=== PATIENT | male | born 1945 | race Caucasian/White ===

== ENCOUNTER 2016-04-29 19:50 | Emergency (ER) | payer BC, MEDICAID ==
[2016-04-29] MEDS ORDERED: IPRATROPIUM/ALBUTEROL (0.5MG/3MG) NEB INH ONE (19:58)
[2016-04-29] MEDS ORDERED: METHYLPREDNISOLONE PF 125MG/VIAL IVP ONE (20:00)
--- NOTE | 2016-04-29 20:06 | Emergency Department Record ---
History of Present Illness - General Chief Complaint: Shortness of breath Stated Complaint: BRITTANY Source: Patient - History of Present Illness Initial Comments: The patient states he has been sick since Monday with cough productive of thick yellow sputum, fevers, SOB. Yesterday, , he slept all day, and today he is more short of breath. He used his nebulizers twice today but has not had relief of his SOB. He has COPD and states that he gets pneumonia at least once a year. He denies AK, PE, DVT, CVA. He is being treated for htn. He recently moved to this area to live with family. He states he is depressed as he has lost his , two brothers, and a son in the past 1 and 1/2 years. MD Complaint: Shortness of breath - Related Data Home Medications Medication Instructions Recorded Confirmed Last Taken Budesonide/Formoterol Fumarate 1 puff PO BID 04/29/16 04/29/16 Unknown [Symbicort 160-4.5 Mcg Inhaler] Hydrochlorothiazide 12.5 mg PO DAILY 04/29/16 04/29/16 Unknown [Hydrochlorothiazide] Lisinopril [Zestril] 20 mg PO DAILY 04/29/16 04/29/16 Unknown Omeprazole [Prilosec] 20 mg PO DAILY 04/29/16 04/29/16 Unknown Simvastatin [Simvastatin] 20 mg PO DAILY 04/29/16 04/29/16 Unknown Tamsulosin HCl [Tamsulosin HCl] 0.4 mg PO DAILY 04/29/16 04/29/16 Unknown Tiotropium Agar [Spiriva] 1 puff INH DAILY 04/29/16 04/29/16 Unknown Allergies Allergy/AdvReac Type Severity Reaction Status Date / Time varenicline tartrate AdvReac disoriented Verified 04/29/16 19:58 [[facility] Review of Systems Reviewed: No additional complaints except as noted below Constitutional: Reports: As per HPI. Denies: Chills, Fever, Malaise, Night sweats, Weakness, Weight change Eyes: Reports: As per HPI. Denies: Eye discharge, Eye pain, Photophobia, Vision change ENT: Reports: As per HPI. Denies: Congestion, Dental pain, Ear pain, Epistaxis , Hearing loss, Throat pain Respiratory: Reports: As per HPI. Denies: Cough, Dyspnea, Hemoptysis, Stridor, Wheezes Cardiovascular: Reports: As per HPI. Denies: Arrhythmia, Chest pain, Dyspnea on exertion, Edema, Murmurs, Orthopnea, Palpitations, Paroxysmal nocturnal dyspnea, Rheumatic Fever, Syncope Endocrine: Reports: As per HPI. Denies: Fatigue, Heat or cold intolerance, Polydipsia, Polyuria Gastrointestinal: Reports: As per HPI. Denies: Abdominal pain, Constipation, Diarrhea, Hematemesis, Hematochezia, Melena, Nausea, Vomiting Genitourinary: Reports: As per HPI. Denies: Dysuria, Frequency, Hematuria, Incontinence, Retention, Testicular pain, Testicular mass, Urgency Musculoskeletal: Reports: As per HPI. Denies: Arthralgia, Back pain, Gout, Joint swelling, Myalgia, Neck pain Skin: Reports: As per HPI. Denies: Bruising, Change in color, Change in hair/ nails, Lesions, Pruritus, Rash Neurological: Reports: As per HPI. Denies: Abnormal gait, Confusion, Headache, Numbness, Paresthesias, Seizure, Tingling, Tremors, Vertigo, Weakness Psychiatric: Reports: As per HPI. Denies: Anxiety, Auditory hallucinations, Depression, Homicidal thoughts, Suicidal thoughts, Visual hallucinations Hematological/Lymphatic: Reports: As per HPI. Denies: Anemia, Blood Clots, Easy bleeding, Easy bruising, Swollen glands Past Medical History - SOCIAL HISTORY Smoking Status: Former smoker Physical Exam - General General Appearance: Alert, Oriented x3, Cooperative, Moderate distress (barrel chested, fatigued, breathless speech) - Head Head exam: Normal inspection - Eye Eye exam: Normal appearance, PERRL Pupils: Normal accommodation - ENT ENT exam: Normal exam, Mucous membranes moist, Normal external ear exam, Normal orophraynx, TM's normal bilaterally Ear exam: Normal external inspection. negative: External canal tenderness Nasal Exam: Normal inspection. negative: Discharge, Sinus tenderness Mouth exam: Normal external inspection, Tongue normal Teeth exam: Normal inspection. negative: Dental caries Throat exam: Normal inspection. negative: Tonsillar erythema, Tonsillar exudate - Neck Neck exam: Normal inspection, Full ROM. negative: Lymphadenopathy, Meningismus , Tenderness - Respiratory Respiratory exam: Accessory muscle use, Decreased breath sounds, Prolonged expiratory, Respiratory distress - Cardiovascular Cardiovascular Exam: Regular rate, Normal rhythm, Normal heart sounds, Tachycardia - GI/Abdominal GI/Abdominal exam: Soft, Normal bowel sounds. negative: Tenderness - Rectal Rectal exam: Deferred - exam: Deferred - Extremities Extremities exam: Normal inspection, Full ROM, Normal capillary refill. negative: Calf tenderness, Pedal edema, Tenderness - Back Back exam: Reports: Normal inspection, Full ROM. Denies: Muscle spasm, Rash noted, Tenderness - Neurological Neurological exam: Alert, Normal gait, Oriented X3, Reflexes normal - Psychiatric Psychiatric exam: Normal affect, Normal mood - Skin Skin exam: Dry, Intact, Normal color, Warm Course - Reevaluation(s) Reevaluation #1: Patient suddenly developed left lower chest "cramping" and more BRITTANY from the pain. He now is diaphoretic. Patient was repositioned upright on cart, lung sounds are clear posteriorly, pain on left lower ribs is not reproduceable on palpation. EKG ordered. Repositioning appears to have helped. No JVD when patient upright. 04/29/16 21:05 Reevaluation #2: Recheck of patient reveals his diaphoresis has resolved. sand technician in progress of obtaining EKG which was difficult due to diaphoresis. Patient is still tachypneic, biox 93%. P 123. 04/29/16 21:21 Reevaluation #3: Spoke with [facility] Internal medicine credit control manager Dr. Soni who accepts patient in transfer. 04/29/16 22:28 Reevaluation #4: Patient is more comfortable on bipap. Awaiting bed number and EMS for transfer. Patient aware and agrees with plan. 04/29/16 22:33 Medical Decision Making - Management Options MDM Management: Additional Work-up Planned (e.g. ADM/Transfer/OP Study) - Data Complexity MDM Data: Labs Ordered and/or Reviewed, X-Ray Ordered and/or Reviewed (CTA Chest : No PE/no aortic dissection; Patchy bibasilar infiltrates CW pneumonia; tiny R pl. effusion; L apex non Ca nodule and mildly enlarged medfiastinal LN's both which need follow up Ct 3 months time. ), EKG Ordered and/or Reviewed (No prior for comparison ? new onset a fib) - Lab Data Result diagrams: 04/29/16 19:58 04/29/16 19:58 - EKG Data -: EKG Interpreted by Me (Atrial fibrillation 113/ minute, one PVC, borderline prolonged QT, no prior) Disposition Disposition: Transfer Clinical Impression: COPD with exacerbation, New onset a-fib Bilateral pneumonia Qualifiers: Pneumonia type: due to unspecified organism Lung location: lower lobe of lung Qualified Code(s): J18.9 - Pneumonia, unspecified organism Fever Qualifiers: Fever type: unspecified Qualified Code(s): R50.9 - Fever, unspecified Leukocytosis Qualifiers: Leukocytosis type: unspecified Qualified Code(s): D72.829 - Elevated white blood cell count, unspecified Disposition: Acute Care Hospital Transfer Decision to Admit: Admit from ER Decision to Admit Date: 04/29/16 Decision to Admit Time: [facility] For [facility]: respiratory distress; bilateral pneumonia, COPD exacerbation Accepting Physician: Dr. Tamayo Time Discussed w/Accepting Physician: 22:30 Condition: (3) Guarded Forms: Patient Portal Access
[2016-04-29] MEDS ORDERED: ACETAMINOPHEN 500 MG TABLET PO ONE (20:10)
[2016-04-29] MEDS ORDERED: IBUPROFEN 600 MG TABLET PO ONE (20:10)
[2016-04-29] MEDS ORDERED: CEFTRIAXONE SODIUM 2 GM in 0.9 % SODIUM CHLORIDE 100ML 100 ML IVPB ONE (20:10)
[2016-04-29] MEDS ORDERED: AZITHROMYCIN 500 MG TABLET PO ONE (20:11)
[2016-04-29 20:18] LABS: HEMATOCRIT 41.6 % (42.0-52.0); HEMOGLOBIN 13.7 gm/dl (14.0-18.0); MEAN CELL VOLUME 89.7 fl (81-97); MEAN CORPUSCULAR HEMOGLOBIN 29.5 pg (27-33); MEAN CORPUSCULAR HGB CONC 32.9 g/dl (32-36); PLATELET COUNT 195 K/uL (130-400); RED BLOOD COUNT 4.64 M/uL (4.40-5.70); RED CELL DISTRIBUTION WIDTH 13.8 % (11.5-14.5); WHITE BLOOD COUNT W/O DIFF 13.7 K/uL (4.2-12.2)
[2016-04-29] MEDS ORDERED: ALBUTEROL SULFATE (0.083%) 2.5 MG/3 ML NEB INH ONE (20:22)
[2016-04-29 20:28] LABS: BLOOD UREA NITROGEN 13 mg/dL (9-20); EST GLOMERULAR FILTRATION RATE > 60 ml/min; GLUCOSE,RANDOM 172 mg/dL (70-110)
[2016-04-29 20:42] LABS: TROPONIN I < 0.012 ng/mL (0.00-0.034)
[2016-04-29 22:51] LABS: ALLEN TEST PASS; ARTERIAL BLD GAS O2 SATURATION 96.6 % (95-98); ARTERIAL BLOOD GAS BASE EXCESS 0.7 mmol/L (-2 - 3); ARTERIAL BLOOD GAS HCO3 20.8 mmol/L (18-23); ARTERIAL BLOOD GAS PCO2 21.4 mmHg (35-48); ARTERIAL BLOOD GAS pH 7.59 (7.35-7.45); CARBOXYHEMOGLOBIN 0.7 % (0-1.5); O2 HEMOGLOBIN 96.4 % vol (94-99); TOTAL HEMOGLOBIN 12.5 g/dl (14-18)
--- NOTE | 2016-05-04 13:39 | CT ANGIOGRAM REPORT ---
EXAM: CT ANGIOGRAM OF THE CHEST WITH POST PROCESSING HISTORY: SICK FOR THE PAST TWO DAYS. INCREASING SHORTNESS OF BREATH AND ELEVATED D-DIMER. TECHNIQUE: Standard CT angiography of the chest was performed with post processing following the bolus administration of 90 ml of Omnipaque 350. Additional coronal and sagittal reformatted images were performed on an independent workstation under concurrent supervision. Comparison: None. FINDINGS: There are moderate breathing motion artifacts. The pulmonary arterial tree appears normal. The aorta is normal in caliber. There are moderate coronary artery calcifications. The heart is normal in size. There are patchy infiltrates within the lower lungs bilaterally consistent with bilateral pneumonia. There is a low density smooth pleural plaque involving the inferolateral aspect of the right hemithorax. This measures approximately 1.9 cm AP x 0.8 cm transverse x 2.9 cm in length. Follow-up is recommended to confirm stability. There is a tiny right pleural effusion. A calcified granuloma is present within the left upper lobe. There is a 6 mm noncalcified nodule at the left apex. Minor emphysematous changes are present at the upper lung arriaga. There is no pneumothorax. There are mildly enlarged AP window and subcarinal lymph nodes. The AP window lymph node measures 1.4 x 1.7 cm. The subcarinal lymph node measures 1.6 x 1.6 cm. Other scattered nonenlarged mediastinal and hilar lymph nodes are present. There is a small hiatal hernia. The stomach and epigastrium are otherwise normal. There are scattered tiny cysts within the liver. The upper abdomen is otherwise normal. There is a low density nodule within the left thyroid lobe measuring 12 mm in maximal dimension. There is a tiny hypodense nodule within the right thyroid lobe. IMPRESSION: 1. NO EVIDENCE FOR PULMONARY EMBOLUS OR AORTIC DISSECTION. 2. THERE ARE PATCHY BIBASILAR PULMONARY INFILTRATES CONSISTENT WITH DEVELOPING PNEUMONIA. 3. TINY RIGHT PLEURAL EFFUSION. 4. SMOOTH PLEURAL PLAQUE WITHIN THE INFERIOR RIGHT HEMITHORAX AND NONCALCIFIED NODULE AT THE LEFT APEX. A FOLLOW-UP CT SCAN OF THE CHEST IS RECOMMENDED IN THREE MONTHS TO CONFIRM STABILITY OF THESE AREAS . 5. MILDLY ENLARGED AP WINDOW AND SUBCARINAL LYMPH NODES. THESE ALSO CAN BE REASSESSED ON FOLLOW-UP TO ASSURE STABILITY OR RESOLUTION. 6. MODERATE CORONARY ARTERY CALCIFICATIONS. 7. SMALL HIATAL HERNIA. 8. SCATTERED TINY HEPATIC CYSTS. 9. SMALL HYPODENSE NODULES WITHIN THE THYROID GLAND. IF INDICATED THESE COULD BE FURTHER ASSESSED WITH THYROID ULTRASOUND. JOB NUMBER: [id number] MTDD
== END 2016-04-29 23:05 | disposition short-term general hospital (02) ==
LOC: ER 19:50
DX: J44.1 Chronic obstructive pulmonary disease with (acute) exacerbation (principal); I48.91 Unspecified atrial fibrillation; J18.9 Pneumonia, unspecified organism; R50.81 Fever presenting with conditions classified elsewhere; D72.829 Elevated white blood cell count, unspecified; Z87.891 Personal history of nicotine dependence
CPT/HCPCS: 99285 ×2; 96374; 96375; 82375; 84484; 80048; 82803; 85379; 85027; 83880; 71275; 94640 ×2; 36600; 94660; 93005; 93010; Q9967; J2930; J7613